=== PATIENT | female | born 2000 ===

== ENCOUNTER 2025-07-09 04:55 | Emergency (ER) | payer SELFPAY ==
[2025-07-09 05:15] VITALS: BP 120/78; PULSE 74; RESP 20; TEMP 36.8; O2SAT 97; BMI 30.3
--- NOTE | 2025-07-09 05:43 | ED.WOUNDLAC ---
HPI - Wound/Laceration General Chief Complaint: Wound/Laceration Stated Complaint: hand injury Time Seen by Provider: 07/09/25 05:06 Source: patient Mode of arrival: ambulatory Limitations: no limitations History of Present Illness ED Provider: Dr. Reny Jacobo HPI narrative: Patient comes to the emergency room complaining of a laceration to the thumb on the right hand. Patient states that approximately 10 hours ago she was cooking dinner and accidentally cut off the tip of her thumb. Patient states that she tried to control the bleeding at home but it kept bleeding. Patient states that she is not sure if she is up-to-date with the tetanus shot but does not want a booster Related Data Allergies Allergy/AdvReac Type Severity Reaction Status Date / Time No Known Allergies Allergy Verified 07/09/25 05:19 Review of Systems Review of Systems: Constitutional : No Weight loss, No Fever, No Chills, No Night Sweats, No Fatigue, No Malaise ENT/Mouth : No Hearing loss, No Ear Pain, No Nasal Congestion, No Sinus Pain, No Hoarseness, No sore throat, No Rhinorrhea, No Swallowing Difficulty Eyes: No Eye Pain, No Swelling, No Redness, No Foreign Body, No Discharge, No Vision Changes Cardiovascular : No Chest Pain, No SOB, No Dyspnea on Exertion, No Orthopnea, No Edema, No Palpitations Respiratory : No Cough, No Sputum, No Wheezing, No Smoke Exposure, No Dyspnea Gastrointestinal : No Nausea, No Vomiting, No Diarrhea, No Constipation, No abdominal Pain, No Hematochezia, No Melena Genitourinary : no irregular bleeding, No Dysuria, No Urinary Frequency, No Hematuria, No Urinary Incontinence, No Urgency, No Flank Pain, No Urinary Flow Changes, No Hesitancy Musculoskeletal : No joint pain, No Myalgias, No Joint Swelling Skin : Bleeding on the thumb Neuro : No Weakness, No Numbness, No Paresthesias, No Loss of Consciousness, No Dizziness, No Headache Psych : No Anxiety/Panic, No Depression, No SI/HI/AH/VH, No Social Issues, Heme/Lymph: No Bruising, No Bleeding,No Lymphadenopathy Endocrine : No Polyuria, No Polydipsia, No Temperature Intolerance PMFSH Social History Social History Advance Directives: No Advance Directives Information Provided: Yes Physical Exam Exam: Exam: Appearance: Alert. Oriented X3. No acute distress. Eyes: Pupils equal, round and reactive to light. ENT: Pharynx normal. Neck: Normal inspection. Neck supple. No lymph nodes noted. No crepitus CVS: Normal heart rate and rhythm. Pulses normal. Normal S1 and S2 Respiratory: No respiratory distress. Breath sounds normal. No Wheezing. No rales Abdomen: Soft and nontender. No rigidity. No distention. Skin: Skin warm and dry. Normal skin color. Normal skin turgor. See extremities below Extremities: No lower extremity edema. No Lacerations. No Rash in patient's right hand on the thumb, the tip of the thumb is missing. Actively bleeding Neuro: Oriented X 3. No motor deficit. No sensory deficit. Moving all extremities. No slurred speech. CN 2 through 12 grossly intact Psych: calm, cooperative, normal affect Vital Signs: Vital Signs: Last Vital Signs Temp 98.2 F 07/09/25 05:15 Pulse 74 07/09/25 05:15 Resp 20 07/09/25 05:15 BP 120/78 07/09/25 05:15 Pulse Ox 97 07/09/25 05:15 O2 Del Method Room Air 07/09/25 05:15 BMI result Body Mass Index 30.3 Medical Decision Making Medical Decision Making MDM Narrative: Patient has a skin avulsion. On the fingertip of the thumb of the right hand. Profusely bleeding. For stitches were applied. Discussed with the patient that a callus may forearm. However, it is impossible to close 100% Patient agrees with plan. Patient states that at this time, she does not want her Tdap booster. The skin was thoroughly cleaned, 4 stitches applied, bleeding controlled. Tolerated well the procedure. Procedures Laceration Laceration 1: Site: hand Side (If applicable): right Size (cm): 0.5 Description: other (Avulsion) Depth: simple, single layer Local Anesthetic: lidocaine 1% Amount of anesthesia used (mL): 6 Skin layer closed with: nylon Size (cm): 5-0 Number of sutures: 4 Technique: simple, interrupted Discharge Plan Discharge Clinical Impression: Laceration, Avulsion of skin Patient Disposition: Home, Self-Care Instructions: Care For Your Stitches (ED), Skin Avulsion (ED) Additional Instructions: Your stitches need to be removed in 7-10 days Please follow-up with your primary care physician tomorrow. If you have any worsening or new symptoms, please return to the emergency room or call 911 Print Language: Other
--- OUTSIDE RECORDS SUMMARY | 2025-07-09 06:02 | XMS_ITS | Clinical Summary ---
Author Organization [employer] Address [address] [place] [address] Care Team Providers Care Insights Analyst Name Role Phone Unavailable Primary Care Provider Unavailabl e Social History Tobacco Use Types Packs/Day Years Used Date Smoking Tobacco: Never Assessed Comments Unknown Sex and Gender Information Value Date Recorded Sex Assigned at Not on file Legal Sex Female 9:20 PM EDT Gender Identity Not on file Sexual Orientation Not on file Plan of Treatment Health Maintenance Due Date Last Done Comments Depression Screening 2002 SDOH Screening 2002 Disability Screening 2002 Alcohol/Substance Use Screening 2014 Tobacco Screening 2014 Family Planning (PISQ) 2017 HPV Vaccines (1 - 3-dose series) 2017 Meningococcal B Vaccine (1 o f 2 - Standard) 2018 Hepatitis C Screening 2020 DTaP/Tdap/Td Vaccines (1 - Tdap) 2021 Hepatitis B Vaccines (1 of 3 - 19+ 3-dose series) 2021 Pap Smear 2023 Chlamydia and Gonorrhea Screening 07/24/2024 07/24/2023, 07/24/2023, 07/24/2023 COVID-19 Vaccine (1 - 2024-2 6 season) 2025 Influenza Vaccine (#1) 2025 07/24/2023 Zoster Vaccines (1 of 2) 2052 RSV Patients and Patients Aged 60 years or older (1 - 1-dose 75+ series) 2077 HIV Screening Completed 07/24/2023 HIB Vaccines Aged Out No longer eligi ble based on patient's age to complete this topic Hepatitis A Vaccines Aged Out No long er eligible based on patient's age to complete this topic IPV Vaccines Aged Out No longer eligi ble based on patient's age to complete this topic Meningococcal Vaccine Aged Out No louann colton eligible based on patient's age to complete this topic Pneumococcal Vaccine: Pediatrics (0 to 5 Years) and At-Risk Patients (6 to 49) Years Aged Out No longer eligible b ased on patient's age to complete this topic RSV under 20 months Aged Out No longe r eligible based on patient's age to complete this topic Rotavirus Vaccines Aged Out No longer eligible based on patient's age to complete this topic
[2025-07-09 06:04] VITALS: BP 126/67; PULSE 73; TEMP 36.8
[2025-07-09] MEDS: Lidocaine HCl 1 % 20 ML VIAL INFILTRATI (06:07)
[2025-07-09 06:08] VITALS: BP 126/67; PULSE 73; RESP 16; TEMP 36.8
--- NOTE | 2025-07-09 06:08 | PC.NURSE ---
Reviewed discharge instructions with pt. pt verbalized understanding, notified RN
== END 2025-07-09 06:10 | disposition home or self-care (01) ==
PROVIDERS: Emergency Provider Emergency Medicine
DX: S61.011A Laceration without foreign body of right thumb without damage to nail, initial encounter (principal); W26.0XXA Contact with knife, initial encounter; Y93.G3 Activity, cooking and baking; Y92.000 Kitchen of unspecified non-institutional (private) residence as the place of occurrence of the external cause
CPT/HCPCS: 12001; 99282; 99284; J2003

== ENCOUNTER 2025-07-19 00:25 | Emergency (ER) | payer OTHER, SELFPAY ==
[2025-07-19 00:30] VITALS: BP 125/74; PULSE 108; RESP 20; TEMP 36.6; O2SAT 98; BMI 32.5
--- OUTSIDE RECORDS SUMMARY | 2025-07-19 04:19 | XMS_ITS | Clinical Summary ---
Author Organization [employer] Address [address] [place] [address] Care Team Providers Care Welder Manufacture Name Role Phone Unavailable Primary Care Provider [...]
[2025-07-19 04:23] VITALS: BP 104/61; PULSE 79; RESP 16; TEMP 36.8; O2SAT 98
--- NOTE | 2025-07-19 05:08 | ED_ITS ---
HPI - Skin/Abscess/Foreign Bdy General Chief complaint: Skin/Abscess/Foreign Body Stated complaint: remove stiches Time Seen by Provider: 07/19/25 05:07 Source: patient Mode of arrival: ambulatory Limitations: no limitations History of Present Illness ED Provider: Ranjit ALCANTARA HPI narrative: The patient is a 25-year-old female who returns to the ED for removal of sutures placed in the right thumb tip approximately eight days ago. She reports only mild pain at the site and denies fever or drainage. Four simple sutures were originally placed per chart review. Related Data Allergies Allergy/AdvReac Type Severity Reaction Status Date / Time No Known Allergies Allergy Verified 07/19/25 00:31 Review of Systems Review of Systems: Yes all other systems are reviewed and are negative Physical Exam Vital Signs: Vital Signs: Last Vital Signs Temp 98.2 F 07/19/25 04:23 Pulse 79 07/19/25 04:23 Resp 16 07/19/25 04:23 BP 104/61 07/19/25 04:23 Pulse Ox 98 07/19/25 04:23 O2 Del Method Room Air 07/19/25 04:23 BMI result Body Mass Index 32.5 CONSTITUTIONAL: The patient appears non-toxic, well nourished and in no acute distress. Vital signs as documented. HEAD: Atraumatic, normocephalic. EYES: EOMs grossly intact, pupils equal, conjunctiva clear, no exudate. ENT: Nares patent, no discharge. Airway patent, no audible stridor, visible mucosa is pink and moist without noted lesions. NECK: trachea is midline, no obvious masses or gross abnormalities. CHEST: Symmetric movement, normal appearance. LUNGS: Non-labored work of breathing. CARDIAC: No evidence of hypoperfusion. ABDOMEN: Nondistended, no obvious injury. : Deferred. EXTREMITIES: Healed laceration noted to the right thumb, no evidence of infection. Moves all extremities spontaneously without reported pain. No obvious injury or deformity noted. NEURO: Alert and oriented x3, CN II-XII appear grossly intact. Cerebellar Functioning grossly intact. Speech clear and appropriate. SKIN: Warm, dry, color appropriate. No rashes or lesions noted. Medical Decision Making Medical Decision Making [facility] Narrative: 5:27 AM 07/19/2025 (Ki ALCANTARA): The patient is a 25-year-old female who returns to the ED for removal of sutures placed in the right thumb tip approximately eight days ago. She reports only mild pain at the site and denies fever or drainage. Four simple sutures were originally placed per chart review. On exam the areas well-appearing, no dehiscence, wet borders, or drainage, no other evidence of infection. Three sutures were easily removed today; a fourth could not be located after careful inspection. The original treating provider, Dr. Jacobo, was present in the ED and evaluated the wound at bedside, and felt the final suture had likely fallen out or broken. A Band-Aid was applied. External Record Review External record reviewed: Outpatient record Discharge Plan Discharge Clinical Impression: Visit for suture removal Patient Disposition: Home, Self-Care Instructions: Stitches Removal (ED) Additional Instructions: Thank you for choosing [facility]'s Emergency Department for your care today. At this time there is no indication for admission to the hospital or continued ED observation, and it is safe to discharge you home. Your sutures were successfully removed. Please follow up with your primary care physician for re-evaluation, additional management of your symptoms, and continued preventative care. If you do not have a primary care physician, please call the [facility] at [phone] to establish a new primary care physician. While waiting to establish your new primary care physician, you can call our [facility]in [facility] at [phone] for non-emergency needs. Please return to the emergency department if you develop a severe or sudden change in your symptoms, a fever over 100.4 that does not improve with Tylenol or Ibuprofen, recurrent vomiting, or any other new or worsening symptoms or concerns. Print Language: Other
[2025-07-19 05:36] VITALS: BP 104/61; PULSE 79; RESP 16; TEMP 36.8; O2SAT 98
== END 2025-07-19 05:36 | disposition home or self-care (01) ==
PROVIDERS: Emergency Provider Emergency Medicine
DX: Z48.02 Encounter for removal of sutures (principal)
CPT/HCPCS: 99284